=== PATIENT | female | born 1930 | race Caucasian/White ===

== ENCOUNTER 2017-01-19 15:23 | Emergency (ER) | payer MEDICARE, OTHER ==
[2017-01-19 15:40] VITALS: BP 125/66
[2017-01-19] MEDS ORDERED: LORazepam 1 MG Tab PO ONE (16:03)
--- NOTE | 2017-01-19 16:05 | EDM.PDOC ---
ED HPI GENERAL MEDICAL PROBLEM - General Chief Complaint: General Stated Complaint: ILLNESS Time Seen by Provider: 01/19/17 15:52 Source of Information: Reports: Patient, Family, RN notes reviewed History Limitations: Reports: No limitations - History of Present Illness INITIAL COMMENTS - FREE TEXT/NARRATIVE: 86-year-old female presents emergency department today complaining of dizziness and shortness of breath she has known history of end-stage renal disease states she's been dizzy on and off for the last week or so as well as shortness of breath for the last week or so on and off today things seem to get worse she does admit to being anxious she had dialysis today felt lightheaded both before and after her dialysis run she denies any fevers - Related Data Allergies Allergy/AdvReac Type Severity Reaction Status Date / Time No Known Allergies Allergy Verified 01/19/17 15:40 Home Meds: Home Meds Aspirin [Malinda Chewable Aspirin] 81 mg PO DAILY 08/16/14 [History] Latanoprost [Xalatan 0.005% Ophth Soln] 1 drop EYERT BEDTIME 08/16/14 [History] Multivitamin with Minerals [Multiple Vitamin] 1 tab PO DAILY 08/16/14 [History] Furosemide [Lasix] 80 mg PO BID 03/03/16 [History] Nystatin [Nystatin Crm] 1 applic TOP BID 03/03/16 [History] Vitamin B Complex [B Complex] 1 tab PO DAILY 03/04/16 [History] Lisinopril [Lisinopril] 1 tab PO BID 01/19/17 [History] Past Medical History HEENT History: Reports: Glaucoma, Impaired vision Cardiovascular History: Reports: Heart Failure, Hypertension Respiratory History: Reports: SOB Genitourinary History: Reports: 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: , Other (see below) Other OB/BYN History: cyst removed from right ovary around 31 years of age Musculoskeletal History: Reports: Arthritis Other Neuro History: none Endocrine/Metabolic History: Reports: Diabetes, type II, Obesity/BMI 30+ Hematologic History: Reports: Blood transfusion(s) - Infectious Disease History Infectious Disease History: Reports: Chicken pox, Measles, Mumps, Shingles - Past Surgical History HEENT Surgical History: Reports: None Cardiovascular Surgical History: Reports: None Respiratory Surgical History: Reports: None GI Surgical History: Reports: Appendectomy Female Surgical History: Reports: None Other Female Surgeries/Procedures: none Musculoskeletal Surgical History: Reports: Other (see below) Other Musculoskeletal Surgeries/Procedures:: R femur fx with hardware. hardware removed. Social & Family History - Family History Family Medical History: Noncontributory - Tobacco Use Smoking Status *Q: Former Smoker Years of Tobacco use: 45 Used Tobacco, but Quit: Yes Month Tobacco Last Used: April Second Hand Smoke Exposure: No - Alcohol Use Days Per Week of Alcohol Use: 0 - Recreational Drug Use Recreational Drug Use: No ED ROS GENERAL - Review of Systems Review Of Systems: See Below Constitutional: Denies: fever, chills HEENT: Reports: No symptoms Respiratory: Reports: shortness of breath Cardiovascular: Reports: Dyspnea on exertion, Lightheadedness. Denies: Chest pain GI/Abdominal: Reports: No symptoms : Reports: no symptoms Musculoskeletal: Reports: no symptoms ED EXAM, GENERAL - Physical Exam Exam: See Below Free Text/Narrative:: General: Elderly female, not in any distress, alert and oriented x3 HEENT: head is atraumatic normocephalic, eyes pupils equal round reactive to light and accommodation sclera clear no conjunctivitis appreciated. Ears blocked by cerumen bilaterally. Nose no septal deviation, nares are clear, no blood present. Mouth mucosa is moist and pink no erythema or exudate noted in soft palate, tongue is midline uvula is midline, dentures in place. Neck: Supple no thyromegaly no tracheal deviation. Nodes: Cervical nodes subclavicular nodes nontender no palpable lymphadenopathy noted. Lungs: clear to auscultation bilaterally with symmetrical respirations, no adventitious noise appreciated. CV: Regular rate and rhythm S1 and S2 appreciated no murmurs rubs or gallops noted. Abdomen: Soft, nontender, no palpable masses or organomegaly appreciated, no distention no guarding bowel sounds are present, . Neuro: Cranial nerves II through XII grossly intact Skin: Warm and dry, intact Extremities: No lower extremity edema appreciated, Course - Vital Signs Last Recorded V/S: Last Vital Signs Temp 98.6 F 01/19/17 15:38 Pulse 76 01/19/17 15:38 Resp 18 01/19/17 15:38 BP 125/66 01/19/17 15:38 Pulse Ox 97 01/19/17 15:38 - Orders/Labs/Meds Orders: Active Orders 24 hr Category Date Time Status EKG Documentation Completion [RC] ASDIRECTED Care 01/19/17 16:03 Active Chest 1V Frontal [CR] Urgent Exams 01/19/17 16:02 Taken EKG 12 Lead [EK] Stat Ther 01/19/17 16:01 Ordered Labs: Laboratory Tests 01/19/17 01/19/17 Range/Units 16:21 16:21 WBC 7.7 (4.5-11.0) K/uL RBC 3.58 (3.30-5.50) M/uL Hgb 11.7 L (12.0-15.0) g/dL Hct 34.1 L (36.0-48.0) % MCV 95 (80-98) fL MCH 33 H (27-31) pg MCHC 34 (32-36) % Plt Count 292 (150-400) K/uL Neut % (Auto) 64 (36-66) % Lymph % (Auto) 22 L (24-44) % [place] % (Auto) 10 H (2-6) % Eos % (Auto) 3 (2-4) % Baso % (Auto) 0 (0-1) % Sodium 135 L (140-148) mmol/L Potassium 3.1 L (3.6-5.2) mmol/L Chloride 95 L (100-108) mmol/L Carbon Dioxide 29 (21-32) mmol/L Anion Gap 14.1 H (5.0-14.0) mmol/L BUN 22 H (7-18) mg/dL Creatinine 3.7 H* (0.6-1.0) mg/dL Est Cr Clr Drug Dosing 10.81 mL/min Estimated GFR (MDRD) 12 L (>60) Glucose 198 H (74-106) mg/dL Calcium 8.8 (8.5-10.1) mg/dL Meds: Medications Discontinued Medications Generic Name Dose Route Start Last Admin Trade Name Freq PRN Reason Stop Dose Admin Lorazepam 1 mg 01/19/17 16:03 01/19/17 16:12 Ativan PO 01/19/17 16:04 1 mg ONETIME ONE Administration Departure - Departure Time of Disposition: 17:05 Disposition: Home, Self-Care 01 Condition: fair Clinical Impression: Dizzy Forms: ED Department Discharge Additional Instructions: Please followup with your primary care provider in 3-5 days if not better, please call return to the emergency department with worsening of symptoms. - My Orders Last 24 Hours: My Active Orders 01/19/17 16:01 EKG 12 Lead [EK] Stat 01/19/17 16:02 Chest 1V Frontal [CR] Urgent 01/19/17 16:03 EKG Documentation Completion [RC] ASDIRECTED - Assessment/Plan Last 24 Hours: My Active Orders 01/19/17 16:01 EKG 12 Lead [EK] Stat 01/19/17 16:02 Chest 1V Frontal [CR] Urgent 01/19/17 16:03 EKG Documentation Completion [RC] ASDIRECTED Plan: Assessment Acuity = acute Site and laterality = dizziness, in a patient with known end-stage kidney disease on dialysis Etiology = unclear etiology Manifestations = none Location of injury = home Lab values = in the lower lumbar and 7 this is a normochromic anemia sodium low at 135 consistent hyponatremia potassium of 3.1 consistent with hypokalemia creatinine elevated at 3.7 consistent end stage kidney disease G5D Plan She was able to ambulate around the emergency department without difficulty she still states the dizziness is intermittent, she would like to go home followup with her primary care provider, no shortness of breath Patient was in agreement with the plan all questions were answered, they were instructed to return to the emergency department or call for worsening symptoms. This note was dictated using [employer] voice recognition software please call with any questions.
--- NOTE | 2017-01-20 09:06 | CR ---
Portable chest Comparison: September 2015. There has been removal of a right central venous catheter. The heart and vascular structures are sta ble. There is density in the medial aspect of the right upper lobe. There may be volume loss or infi ltrate of the medial right upper lobe. Impression: 1. Right upper lobe atelectasis and/or infiltrate.
== END 2017-01-19 17:14 | disposition home or self-care (01) ==
LOC: JP.ED 15:23
DX: R42 Dizziness and giddiness (principal); I11.0 Hypertensive heart disease with heart failure; I50.9 Heart failure, unspecified; E11.9 Type 2 diabetes mellitus without complications; Z87.891 Personal history of nicotine dependence; Z79.82 Long term (current) use of aspirin; Z79.899 Other long term (current) drug therapy
CPT/HCPCS: 36415; 71010; 80048; 85025; 93005; 99284; A9270; 93010

== ENCOUNTER 2017-03-09 20:15 | Emergency (ER) | payer MEDICARE, OTHER ==
[2017-03-09] MEDS ORDERED: fentaNYL 100 MCG/2 ML SDV IVPUSH ONE ×2 (20:32→21:00)
[2017-03-09] MEDS ORDERED: HYDROmorphone 1 MG/ML Syringe IVPUSH ONE ×2 (21:11→22:13)
--- NOTE | 2017-03-09 21:17 | EDM.PDOC ---
ED HPI Trauma - General Chief Complaint: Lower Extremity Injury/Pain Stated Complaint: FELL HURT HIP Time Seen by Provider: 03/09/17 21:10 Source: Reports: Patient, EMS, RN notes reviewed History Limitations: Reports: No limitations - History of Present Illness INITIAL COMMENTS - FREE TEXT/NARRATIVE: 87-year-old female presents emergency department today via EMS services, she had fallen earlier today in the bathroom EMS had difficulty asked dictating her from the bathroom she is complaining of left hip pain unable to bear weight Allergies/ADRs: Allergies No Known Allergies Allergy (Verified 01/19/17 15:40) Home Medications: Ambulatory Orders Aspirin [Malinda Chewable Aspirin] 81 mg PO DAILY 08/16/14 [Confirmed 03/09/17] Latanoprost [Xalatan 0.005% Ophth Soln] 1 drop EYERT BEDTIME 08/16/14 [ Confirmed 03/09/17] Multivitamin with Minerals [Multiple Vitamin] 1 tab PO DAILY 08/16/14 [ Confirmed 03/09/17] Furosemide [Lasix] 40 mg PO BID 03/03/16 [Confirmed 03/09/17] Nystatin [Nystatin Crm] 1 applic TOP BID 03/03/16 [Confirmed 03/09/17] Vitamin B Complex [B Complex] 1 tab PO DAILY 03/04/16 [Confirmed 03/09/17] Lisinopril [Lisinopril] 1 tab PO BID 01/19/17 [Confirmed 03/09/17] Metoprolol Tartrate 25 mg PO BID 03/09/17 [Confirmed 03/09/17] Sevelamer Carbonate [Renvela] 800 mg PO TID 03/09/17 [Confirmed 03/09/17] amLODIPine Besylate [Norvasc] 2.5 mg PO DAILY 03/09/17 [Confirmed 03/09/17] Past Medical History HEENT History: Reports: Glaucoma, Impaired vision Cardiovascular History: Reports: Heart Failure, Hypertension Respiratory History: Reports: SOB Genitourinary History: Reports: Dialysis 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,W,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: , Other (see below) Other OB/BYN History: cyst removed from right ovary around 31 years of age Musculoskeletal History: Reports: Arthritis, Fracture Endocrine/Metabolic History: Reports: Diabetes, type II, Obesity/BMI 30+ Hematologic History: Reports: Blood transfusion(s) - Infectious Disease History Infectious Disease History: Reports: Chicken pox, Measles, Mumps, Shingles - Past Surgical History HEENT Surgical History: Reports: None Cardiovascular Surgical History: Reports: None Respiratory Surgical History: Reports: None GI Surgical History: Reports: Appendectomy Female Surgical History: Reports: None Other Female Surgeries/Procedures: none Musculoskeletal Surgical History: Reports: Other (see below) Other Musculoskeletal Surgeries/Procedures:: R femur fx with hardware. hardware removed. Social & Family History - Family History Family Medical History: Noncontributory - Tobacco Use Smoking Status *Q: Never Smoker Years of Tobacco use: 45 Used Tobacco, but Quit: Yes Month Tobacco Last Used: April Second Hand Smoke Exposure: No - Caffeine Use Caffeine Use: Reports: None - Alcohol Use Days Per Week of Alcohol Use: 0 - Recreational Drug Use Recreational Drug Use: No Review of Systems - Review of Systems Review Of Systems: See Below Respiratory: Reports: No Symptoms Cardiovascular: Reports: no symptoms GI/Abdominal: Reports: No symptoms Musculoskeletal: Reports: joint pain (Left hip pain) Trauma Exam - Physical Exam Exam: See Below Text/Narrative:: Examination of the left hip is outwardly rotated there is tenderness to palpation of the greater trochanter she will not tolerate any movement of that hip Exam Limited By: No limitations General Appearance: Reports: alert, mild distress Neck: Reports: non-tender, full range of motion, normal alignment, normal inspection Respiratory Exam: Reports: no respiratory distress, lungs clear, normal breath sounds, no accessory muscle use Cardiovascular: Reports: regular rate, rhythm, no murmur GI/Abdominal: Reports: soft, non tender Course - Vital Signs Last Recorded V/S: Last Vital Signs Temp 97.9 F 03/09/17 20:30 Pulse 48 L 03/09/17 23:20 Resp 12 03/09/17 23:20 BP 160/49 H 03/09/17 23:20 Pulse Ox 91 L 03/09/17 23:20 - Orders/Labs/Meds Orders: Active Orders 24 hr Category Date Time Status Hip Min 2V or 3V Lt [CR] Stat Exams 03/09/17 20:26 Taken Hip wo Cont Lt [CT] Stat Exams 03/09/17 21:11 Taken Labs: Laboratory Tests 03/09/17 03/09/17 Range/Units 23:29 23:29 WBC 11.9 H (4.5-11.0) K/uL RBC 3.47 (3.30-5.50) M/uL Hgb 11.6 L (12.0-15.0) g/dL Hct 35.6 L (36.0-48.0) % MCV 103 H (80-98) fL MCH 33 H (27-31) pg MCHC 33 (32-36) % Plt Count 289 (150-400) K/uL Neut % (Auto) 72 H (36-66) % Lymph % (Auto) 16 L (24-44) % [place] % (Auto) 9 H (2-6) % Eos % (Auto) 2 (2-4) % Baso % (Auto) 0 (0-1) % Sodium 138 L (140-148) mmol/L Potassium 3.5 L (3.6-5.2) mmol/L Chloride 100 (100-108) mmol/L Carbon Dioxide 30 (21-32) mmol/L Anion Gap 11.5 (5.0-14.0) mmol/L BUN 27 H (7-18) mg/dL Creatinine 4.8 H* (0.6-1.0) mg/dL Est Cr Clr Drug Dosing TNP Estimated GFR (MDRD) 9 L (>60) Glucose 130 H (74-106) mg/dL Calcium 7.9 L (8.5-10.1) mg/dL Total Bilirubin 0.3 (0.2-1.0) mg/dL AST 27 (15-37) U/L ALT 26 (12-78) U/L Alkaline Phosphatase 89 (46-116) U/L Total Protein 6.8 (6.4-8.2) g/dL Albumin 3.5 (3.4-5.0) g/dL Globulin 3.3 (2.3-3.5) g/dL Albumin/Globulin Ratio 1.1 L (1.2-2.2) Meds: Medications Discontinued Medications Generic Name Dose Route Start Last Admin Trade Name Freq PRN Reason Stop Dose Admin Fentanyl 50 mcg 03/09/17 20:32 03/09/17 20:35 Sublimaze IVPUSH 03/09/17 20:33 50 mcg ONETIME ONE Administration Fentanyl 50 mcg 03/09/17 21:00 03/09/17 21:04 Sublimaze IVPUSH 03/09/17 21:01 50 mcg ONETIME ONE Administration Hydromorphone HCl 1 mg 03/09/17 21:11 03/09/17 21:25 Dilaudid IVPUSH 03/09/17 21:12 1 mg ONETIME ONE Administration Hydromorphone HCl 1 mg 03/09/17 22:13 03/09/17 22:30 Dilaudid IVPUSH 03/09/17 22:14 1 mg ONETIME ONE Administration Departure - Departure Time of Disposition: 00:41 Disposition: DC/Tfer to Acute Hospital 02 Condition: good Clinical Impression: Intertrochanteric fracture, hip Forms: ED Department Discharge - My Orders Last 24 Hours: My Active Orders 03/09/17 20:26 Hip Min 2V or 3V Lt [CR] Stat 03/09/17 21:11 Hip wo Cont Lt [CT] Stat - Assessment/Plan Last 24 Hours: My Active Orders 03/09/17 20:26 Hip Min 2V or 3V Lt [CR] Stat 03/09/17 21:11 Hip wo Cont Lt [CT] Stat Plan: Assessment Acuity = acute Site and laterality = comminuted and displaced intertrochanteric fracture left proximal femur Etiology = secondary to fall Manifestations = pain Location of injury = home Lab values = WBC elevated lead 0.9 muscle leukocytosis hemoglobin low 11.6 consistent normochromic anemia sodium low at 138 consistent hyponatremia potassium low at 2.5 consistent hypokalemia creatinine elevated at 4.8 consistent with chronic renal failure stage G5 D CT scan demonstrates the fracture described above Plan Patient was kindly accepted by Dr. Anthony Anthony she will be transported via EMS services ground Patient was in agreement with the plan all questions were answered, they were instructed to return to the emergency department or call for worsening symptoms. This note was dictated using [employer] voice recognition software please call with any questions.
[2017-03-09 23:21] VITALS: BP 160/49
[2017-03-10] MEDS ORDERED: Ondansetron 4 MG/2 ML SDV IVPUSH ONE (00:42)
--- NOTE | 2017-03-10 09:44 | CR ---
Left hip There is a nondisplaced fracture at the base of the femoral neck. The visualized left pelvis demonst rates no additional fracture. Impression: 1. Fracture left femoral neck.
== END 2017-03-10 01:15 ==
LOC: JP.ED 20:15
DX: S72.145A Nondisplaced intertrochanteric fracture of left femur, initial encounter for closed fracture (principal); W18.30XA Fall on same level, unspecified, initial encounter; Y92.002 Bathroom of unspecified non-institutional (private) residence as the place of occurrence of the external cause; M16.12 Unilateral primary osteoarthritis, left hip; I13.0 Hypertensive heart and chronic kidney disease with heart failure and stage 1 through stage 4 chronic kidney disease, or unspecified chronic kidney disease; E11.22 Type 2 diabetes mellitus with diabetic chronic kidney disease; N18.9 Chronic kidney disease, unspecified; I50.9 Heart failure, unspecified; Z99.2 Dependence on renal dialysis; E66.9 Obesity, unspecified; Z79.82 Long term (current) use of aspirin; Z79.899 Other long term (current) drug therapy; Z87.891 Personal history of nicotine dependence
CPT/HCPCS: 36415; 73502; 73700; 80053; 85025; 96374; 96375; 96376; 99285; J1170; J2405; J3010; 99283

== ENCOUNTER 2017-05-27 22:03 | Emergency (ER) | payer MEDICARE, OTHER ==
[2017-05-27] MEDS ORDERED: Morphine 4 MG/ML Syringe ONE (22:41)
[2017-05-27] MEDS ORDERED: Morphine 4 MG/ML Syringe IVPUSH ONE ×2 (22:45→22:57)
[2017-05-27 23:03] VITALS: BP 61/25
--- NOTE | 2017-05-28 00:31 | EDM.PDOC ---
ED HPI GENERAL MEDICAL PROBLEM - General Chief Complaint: Cardiovascular Problem Stated Complaint: MEDICAL VIA [facility] Time Seen by Provider: 05/27/17 22:05 Source of Information: Reports: Patient History Limitations: Reports: No Limitations - History of Present Illness INITIAL COMMENTS - FREE TEXT/NARRATIVE: History of present illness: [This 87-year-old female presented to the ER by ambulance with a history of having undergone a fistula formation in her right upper arm for dialysis today in [place]. Her arm is swollen up and become very painful and she was sent over from the residential where she resides. While she was here she also began complaining of back pain. Otherwise she had no other complaints. She was able to feel her fingers and move her fingers of her right hand.] Review of systems: As per history of present illness and below otherwise all systems reviewed and negative. Past medical history: As per history of present illness and as reviewed below otherwise noncontributory. Surgical history: As per history of present illness and as reviewed below otherwise noncontributory. Social history: No reported history of drug or alcohol abuse. Family history: As per history of present illness and as reviewed below otherwise noncontributory. Physical exam: HEENT: Atraumatic, normocephalic, pupils reactive, negative for conjunctival pallor or scleral icterus, mucous membranes moist, throat clear, neck supple, nontender, trachea midline. Lungs: Clear to auscultation, breath sounds equal bilaterally, chest nontender. Heart: S1S2, regular, negative for clicks, rubs, or JVD. Abdomen: Soft, nondistended, nontender. Negative for masses or hepatosplenomegaly. Negative for costovertebral tenderness. Pelvis: Stable nontender. Genitourinary: Deferred. Rectal: Deferred. Extremities: Examination of the right upper arm revealed swelling and darkening of the skin of the medial surface of the upper arm and 2 surgical incisions that were closed with zohreh through which some bright red blood was weeping. The arm was tense and painful to palpation. Distally her capillary refill was less than 3 seconds and she did have radial pulses and sensation and movement of her hand. Neuro: Awake, alert, oriented. Cranial nerves II through XII unremarkable. Cerebellum unremarkable. Motor and sensory unremarkable throughout. Exam nonfocal. Diagnostics: [] Therapeutics: [We took a picture of the arm and sent to the surgeon that performed the AV fistula earlier today and then I spoke with him Dr. Sousa who requested that we return her to [place] so said he could take her back to the operating room and stop any bleeding that was occurring. Just about when we were ready to transfer her her blood pressure did drop into the mid 50s and then hovered between the mid 50s and mid 70s for the remaining time of her stay in the ER. We did start normal saline on her and provide her with 1 bag of O- blood. We did contact [place] and let them know that she was becoming hypotensive and was complaining of back pain and that I had a concern that perhaps she may also have an aortic aneurysm rupture occurring. She was given 2 doses of morphine 4 mg each aliquot to control the pain that she was having an anxiety.] Impression: [Postoperative bleeding from an AV fistula that had been created earlier today] Plan: [Patient was transferred to [place] ER by ALS] Definitive disposition and diagnosis as appropriate pending reevaluation and review of above. Middle Back Pain Score (Numeric/FACES): 10 - Related Data Allergies Allergy/AdvReac Type Severity Reaction Status Date / Time No Known Allergies Allergy Verified 05/27/17 22:37 Home Meds: Home Meds Aspirin [Malinda Chewable Aspirin] 81 mg PO DAILY 08/16/14 [History] Latanoprost [Xalatan 0.005% Ophth Soln] 1 drop EYERT BEDTIME 08/16/14 [History] Multivitamin with Minerals [Multiple Vitamin] 1 tab PO DAILY 08/16/14 [History] Furosemide [Lasix] 40 mg PO BID 03/03/16 [History] Nystatin [Nystatin Crm] 1 applic TOP BID 03/03/16 [History] Vitamin B Complex [B Complex] 1 tab PO DAILY 03/04/16 [History] Lisinopril [Lisinopril] 1 tab PO BID 01/19/17 [History] Metoprolol Tartrate 25 mg PO BID 03/09/17 [History] Sevelamer Carbonate [Renvela] 800 mg PO TID 03/09/17 [History] amLODIPine Besylate [Norvasc] 2.5 mg PO DAILY 03/09/17 [History] Past Medical History HEENT History: Reports: Glaucoma, Impaired Vision Cardiovascular History: Reports: Heart Failure, Hypertension Respiratory History: Reports: SOB Genitourinary History: Reports: Dialysis 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,W,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: , Other (See Below) Other OB/BYN History: cyst removed from right ovary around 31 years of age Musculoskeletal History: Reports: Arthritis, Fracture Other Neuro History: none Endocrine/Metabolic History: Reports: Diabetes, Type II, Obesity/BMI 30+ Hematologic History: Reports: Blood Transfusion(s) - Infectious Disease History Infectious Disease History: Reports: Chicken Pox, Measles, Mumps, Shingles - Past Surgical History Musculoskeletal Surgical History: Reports: Other (See Below) Social & Family History - Family History Family Medical History: Noncontributory - Tobacco Use Smoking Status *Q: Unknown Ever Smoked Years of Tobacco use: 45 Used Tobacco, but Quit: Yes Month Tobacco Last Used: April Second Hand Smoke Exposure: No - Caffeine Use Caffeine Use: Reports: None - Alcohol Use Days Per Week of Alcohol Use: 0 - Recreational Drug Use Recreational Drug Use: No ED ROS GENERAL - Review of Systems Review Of Systems: ROS reveals no pertinent complaints other than HPI. ED EXAM, GENERAL - Physical Exam Exam: See Below Course - Vital Signs Last Recorded V/S: Last Vital Signs Temp 36.4 C 05/27/17 22:25 Pulse 81 05/27/17 22:48 Resp 24 H 05/27/17 22:48 BP 61/25 L 05/27/17 22:48 Pulse Ox 96 05/27/17 22:48 - Orders/Labs/Meds Orders: Active Orders 24 hr Category Date Time Status RED BLOOD CELLS LP [BBK] Stat Lab 05/27/17 22:46 Ordered TYPE AND SCREEN [BBK] Stat Lab 05/27/17 22:46 Ordered Meds: Medications Discontinued Medications Generic Name Dose Route Start Last Admin Trade Name Freq PRN Reason Stop Dose Admin Morphine Sulfate Confirm 05/27/17 22:41 05/27/17 23:09 Morphine Administered 05/27/17 22:42 Not Given Dose 4 mg .ROUTE .STK-MED ONE Morphine Sulfate 4 mg 05/27/17 22:45 05/27/17 22:42 Morphine IVPUSH 05/27/17 22:46 4 mg ONETIME ONE Administration Morphine Sulfate 4 mg 05/27/17 22:57 05/27/17 23:13 Morphine IVPUSH 05/27/17 22:58 4 mg ONETIME ONE Administration Departure - Departure Time of Disposition: 20:00 Disposition: DC/Tfer to Acute Hospital 02 Reason for Transfer *Q: Other (Needing surgical intervention) Clinical Impression: Postoperative hemorrhage Qualifiers: Surgical complication system/body Area: subcutaneous tissue Procedure type: non -dermatologic Qualified Code(s): L76.22 - Postprocedural hemorrhage of skin and subcutaneous tissue following other procedure Referrals: PCP,None [Primary Care Provider] - Forms: ED Department Discharge - My Orders Last 24 Hours: My Active Orders 05/27/17 22:46 RED BLOOD CELLS LP [BBK] Stat TYPE AND SCREEN [BBK] Stat - Assessment/Plan Last 24 Hours: My Active Orders 05/27/17 22:46 RED BLOOD CELLS LP [BBK] Stat TYPE AND SCREEN [BBK] Stat
== END 2017-05-27 22:55 ==
LOC: JP.ED 22:03
DX: L76.22 Postprocedural hemorrhage of skin and subcutaneous tissue following other procedure (principal); I11.0 Hypertensive heart disease with heart failure; I50.9 Heart failure, unspecified; E11.9 Type 2 diabetes mellitus without complications; E66.9 Obesity, unspecified; M19.90 Unspecified osteoarthritis, unspecified site; Z79.82 Long term (current) use of aspirin; Z79.899 Other long term (current) drug therapy; Z99.2 Dependence on renal dialysis
CPT/HCPCS: 36430; 96374; 96376; 99285; J2270; P9016; 36415; 86900; 86901; 86920; 86922

== ENCOUNTER 2017-05-30 14:30 | Emergency (ER) | payer MEDICARE, OTHER ==
--- NOTE | 2017-05-30 15:23 | EDM.PDOC ---
ED HPI GENERAL MEDICAL PROBLEM - General Chief Complaint: Wound Recheck Stated Complaint: MEDICAL [facility]IA [facility] Time Seen by Provider: 05/30/17 14:42 Source of Information: Reports: Patient, Family History Limitations: Reports: Other (This patient can't tell me much about her history and the daughter doesn't really know when her surgery was done) - History of Present Illness INITIAL COMMENTS - FREE TEXT/NARRATIVE: This lady was discharged yesterday evening from the hospital in [place]. She had a clot to her fistula and it sounds like maybe a thrombectomy was done and then a right subclavian catheter was placed for dialysis. Today at the custodial the nurse thought that the wounds to her upper arm was bleeding and soaking through the bandages and there is also concerned about her right arm swelling area - Related Data Allergies Allergy/AdvReac Type Severity Reaction Status Date / Time No Known Allergies Allergy Verified 05/27/17 22:37 Home Meds: Home Meds Aspirin [Malinda Chewable Aspirin] 81 mg PO DAILY 08/16/14 [History] Latanoprost [Xalatan 0.005% Ophth Soln] 1 drop EYERT BEDTIME 08/16/14 [History] Multivitamin with Minerals [Multiple Vitamin] 1 tab PO DAILY 08/16/14 [History] Furosemide [Lasix] 40 mg PO BID 03/03/16 [History] Nystatin [Nystatin Crm] 1 applic TOP BID 03/03/16 [History] Vitamin B Complex [B Complex] 1 tab PO DAILY 03/04/16 [History] Lisinopril [Lisinopril] 1 tab PO BID 01/19/17 [History] Metoprolol Tartrate 25 mg PO BID 03/09/17 [History] Sevelamer Carbonate [Renvela] 800 mg PO TID 03/09/17 [History] amLODIPine Besylate [Norvasc] 2.5 mg PO DAILY 03/09/17 [History] Past Medical History HEENT History: Reports: Glaucoma, Impaired Vision Cardiovascular History: Reports: Heart Failure, Hypertension Respiratory History: Reports: SOB Genitourinary History: Reports: Dialysis 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,W,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 [employer] History: Reports: , Other (See Below) Other OB/BYN History: cyst removed from right ovary around 31 years of age Musculoskeletal History: Reports: Arthritis, Fracture Other Neuro History: none Endocrine/Metabolic History: Reports: Diabetes, Type II, Obesity/BMI 30+ Hematologic History: Reports: Blood Transfusion(s) - Infectious Disease History Infectious Disease History: Reports: Chicken Pox, Measles, Mumps, Shingles - Past Surgical History Musculoskeletal Surgical History: Reports: Other (See Below) Social & Family History - Family History Family Medical History: Noncontributory - Tobacco Use Smoking Status *Q: Unknown Ever Smoked Years of Tobacco use: 45 Used Tobacco, but Quit: Yes Month Tobacco Last Used: April Hand Smoke Exposure: No - Caffeine Use Caffeine Use: Reports: None - Alcohol Use Days Per Week of Alcohol Use: 0 - Recreational Drug Use Recreational Drug Use: No ED ROS GENERAL - Review of Systems Review Of Systems: ROS reveals no pertinent complaints other than HPI. ED EXAM, GENERAL - Physical Exam Exam: See Below Exam Limited By: No Limitations General Appearance: Alert, No Apparent Distress (This lady appears to be comfortable lying in bed.), Obese Extremities: Other (There is a large loose gauze dressing to the upper arm and a smaller 1 to the forearm. There is just a little bit of oozing that had soaked through this dressing. The dressing was removed. There is a large purple area over the biceps. It has 2 black semicircular sol on it which appear to have been drawn by the surgeon and the area of purple discoloration is just slightly larger than the larger of those to sol. There is a little bit of surrounding erythema but really is not increased warmth. There is moderate swelling of the right arm all the way down to the hand but neurovascular tendon all intact to the hand radial pulse is palpable. Overall these changes or what I would expect one or 2 days post op. It does not appear to be cellulitis. It does not appear to have any ongoing hemorrhage.) Course - Vital Signs Last Recorded V/S: Last Vital Signs Temp 37.0 C 05/30/17 14:35 Pulse 83 05/30/17 14:35 Resp 17 05/30/17 14:35 BP 132/61 05/30/17 14:35 Pulse Ox 95 05/30/17 14:35 Departure - Departure Time of Disposition: 15:22 Disposition: DC/Tfer to [facility] 03 Condition: Fair Clinical Impression: Encounter for wound re-check - Discharge Information Additional Instructions: The wound appears to be as expected after her recent surgery. For any concerns she should be sent back to the emergency department tomorrow during the daytime hours and I will recheck the wound.
[2017-05-30 17:47] VITALS: BP 136/99
== END 2017-05-30 17:57 ==
LOC: JP.ED 14:30
DX: Z48.89 Encounter for other specified surgical aftercare (principal); H54.7 Unspecified visual loss; I11.0 Hypertensive heart disease with heart failure; I50.9 Heart failure, unspecified; M19.90 Unspecified osteoarthritis, unspecified site; E11.9 Type 2 diabetes mellitus without complications; E66.9 Obesity, unspecified; Z79.82 Long term (current) use of aspirin; Z79.899 Other long term (current) drug therapy
CPT/HCPCS: 99282; 99283

== ENCOUNTER 2017-06-03 09:10 | Inpatient (IN) | payer MEDICARE, OTHER ==
[2017-06-03] MEDS ORDERED: HYDROmorphone 0.5 MG/0.5 ML Syringe IVPUSH ONE (09:30)
[2017-06-03] MEDS ORDERED: Ondansetron 4 MG/2 ML SDV IVPUSH ONE (09:30)
--- NOTE | 2017-06-03 09:44 | EDM.PDOC ---
ED HPI GENERAL MEDICAL PROBLEM - General Chief Complaint: Abdominal Pain Stated Complaint: MEDICAL [facility]IA [facility] Time Seen by Provider: 06/03/17 09:30 Source of Information: Reports: Patient, EMS, Senior Care Records, Other ( power of tyre fitter ) History Limitations: Reports: Altered Mental Status - History of Present Illness INITIAL COMMENTS - FREE TEXT/NARRATIVE: 87-year-old female who has had 3 visits by ambulance in the last week for various reasons is a dialysis patient, this morning she became hypotensive and unresponsive and bleeding from the rectal and vaginal areas. She's been complaining of abdominal pain for the past several days. No fevers or chills. She looks very pale, initial blood pressure per EMS had a systolic of 70. She is now 92/56. She is answering questions and is awake. Onset: Unknown/Unsure Severity: Severe Associated Symptoms: Reports: Nausea/Vomiting, Weakness. Denies: Fever/Chills, Headaches, Shortness of Breath Abdominal Pain Score (Numeric/FACES): 8 - Related Data Allergies Allergy/AdvReac Type Severity Reaction Status Date / Time No Known Allergies Allergy Verified 06/03/17 11:19 Home Meds: Home Meds Aspirin [Malinda Chewable Aspirin] 81 mg PO DAILY 08/16/14 [History] Latanoprost [Xalatan 0.005% Ophth Soln] 1 drop EYERT BEDTIME 08/16/14 [History] Multivitamin with Minerals [Multiple Vitamin] 1 tab PO DAILY 08/16/14 [History] Furosemide [Lasix] 40 mg PO BID 03/03/16 [History] Nystatin [Nystatin Crm] 1 applic TOP BID 03/03/16 [History] Vitamin B Complex [B Complex] 1 tab PO DAILY 03/04/16 [History] Lisinopril [Lisinopril] 1 tab PO BID 01/19/17 [History] Metoprolol Tartrate 25 mg PO BID 03/09/17 [History] Sevelamer Carbonate [Renvela] 800 mg PO TID 03/09/17 [History] amLODIPine Besylate [Norvasc] 2.5 mg PO DAILY 03/09/17 [History] Past Medical History HEENT History: Reports: Glaucoma, Impaired Vision Cardiovascular History: Reports: Heart Failure, Hypertension Respiratory History: Reports: SOB Genitourinary History: Reports: Dialysis 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,W,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: , Other (See Below) Other OB/BYN History: cyst removed from right ovary around 31 years of age Musculoskeletal History: Reports: Arthritis, Fracture Other Neuro History: none Endocrine/Metabolic History: Reports: Diabetes, Type II, Obesity/BMI 30+ Hematologic History: Reports: Blood Transfusion(s) - Infectious Disease History Infectious Disease History: Reports: Chicken Pox, Measles, Mumps, Shingles - Past Surgical History GI Surgical History: Reports: Appendectomy Musculoskeletal Surgical History: Reports: Other (See Below) Social & Family History - Family History Family Medical History: Noncontributory - Tobacco Use Smoking Status *Q: Never Smoker Years of Tobacco use: 45 Used Tobacco, but Quit: Yes Month Tobacco Last Used: April Second Hand Smoke Exposure: No - Caffeine Use Caffeine Use: Reports: None - Alcohol Use Days Per Week of Alcohol Use: 0 - Recreational Drug Use Recreational Drug Use: No ED ROS GENERAL - Review of Systems Review Of Systems: See Below Constitutional: Reports: Malaise, Weakness, Decreased Appetite Respiratory: Denies: Shortness of Breath GI/Abdominal: Reports: Abdominal Pain, Hematochezia Skin: Reports: Bruising Neurological: Reports: Confusion Psychiatric: Reports: Depression ED EXAM, GENERAL - Physical Exam Exam: See Below Exam Limited By: Altered Mental Status General Appearance: Alert (Patient is alert but answers questions slowly) Eye Exam: Bilateral Eye: EOMI (Very pale conjunctiva) Neck: Supple Respiratory/Chest: No Respiratory Distress, Lungs Clear Cardiovascular: Regular Rate, Rhythm GI/Abdominal: Abnormal Bowel Sounds (over a course of 2 minutes there were no bowel sounds heard), Other (Even the lightest palpation to the entire abdomen causes her to wince in pain) Extremities: Other (Numerous superficial bruises are present, skin is very pale) Neurological: Confused, Disoriented Psychiatric: Depressed Mood Skin Exam: Dry, Pallor Course - Vital Signs Last Recorded V/S: Last Vital Signs Temp 97.1 F 06/03/17 13:15 Pulse 99 06/03/17 13:15 Resp 16 06/03/17 13:15 BP 107/54 L 06/03/17 13:15 Pulse Ox 90 L 06/03/17 13:15 - Orders/Labs/Meds Orders: Active Orders 24 hr Category Date Time Status LORazepam [Ativan ORAL Concentrate 1MG/0.5 ML U/D] Med 06/03/17 10:38 Active 0.5 - 1 mg PO Q1H PRN Morphine [Morphine 10 MG/0.5 ML Oral Syringe] Med 06/03/17 10:38 Active 5 - 10 mg PO Q1H PRN Medication Orders Atropine Sulfate (Atropine 1%) 0 ml SL Q4H PRN PRN Reason: secretions Lorazepam (Ativan Oral Concentrate 1mg/0.5 Ml U/D) 0.5 - 1 mg PO Q1H PRN PRN Reason: Anxiety Last Admin: 06/03/17 15:17 Dose: 1 mg Admin: 06/03/17 13:10 Dose: 1 mg Admin: 06/03/17 12:13 Dose: 1 mg Morphine Sulfate (Morphine 10 Mg/0.5 Ml Oral Syringe) 5 - 10 mg PO Q1H PRN PRN Reason: Pain Last Admin: 06/03/17 18:18 Dose: 10 mg Admin: 06/03/17 15:17 Dose: 10 mg Admin: 06/03/17 13:11 Dose: 10 mg Admin: 06/03/17 12:14 Dose: 10 mg Admin: 06/03/17 11:08 Dose: 10 mg Ondansetron HCl (Zofran Odt) 4 mg PO Q6H PRN PRN Reason: Nausea able to take PO Labs: Laboratory Tests 06/03/17 06/03/17 06/03/17 Range/Units 09:25 09:25 09:25 WBC 10.7 (4.5-11.0) K/uL RBC 1.74 L (3.30-5.50) M/uL Hgb 5.4 L* D (12.0-15.0) g/dL Hct 16.8 L (36.0-48.0) % MCV 97 (80-98) fL MCH 31 (27-31) pg MCHC 32 (32-36) % Plt Count 352 (150-400) K/uL Neut % (Auto) 74 H (36-66) % Lymph % (Auto) 16 L (24-44) % [place] % (Auto) 9 H (2-6) % Eos % (Auto) 1 L (2-4) % Baso % (Auto) 0 (0-1) % PT 23.7 H (9.5-12.0) sec INR 2.15 H (0.80-1.20) Sodium 138 L (140-148) mmol/L Potassium 4.4 (3.6-5.2) mmol/L Chloride 102 (100-108) mmol/L Carbon Dioxide 27 (21-32) mmol/L Anion Gap 13.4 (5.0-14.0) mmol/L BUN 50 H D (7-18) mg/dL Creatinine 3.9 H* (0.6-1.0) mg/dL Est Cr Clr Drug Dosing 10.04 mL/min Estimated GFR (MDRD) 11 L (>60) Glucose 175 H (74-106) mg/dL Calcium 7.6 L (8.5-10.1) mg/dL Total Bilirubin 0.3 (0.2-1.0) mg/dL AST 18 (15-37) U/L ALT 3 L (12-78) U/L Alkaline Phosphatase 86 (46-116) U/L Total Protein 4.4 L (6.4-8.2) g/dL Albumin 1.5 L (3.4-5.0) g/dL Globulin 2.9 (2.3-3.5) g/dL Albumin/Globulin Ratio 0.5 L (1.2-2.2) Meds: Medications Generic Name Dose Route Start Last Admin Trade Name Freq PRN Reason Stop Dose Admin Atropine Sulfate 0 ml 06/03/17 12:08 Atropine 1% SL Q4H PRN secretions Lorazepam 0.5 - 1 mg 06/03/17 10:38 06/03/17 15:17 Ativan Oral Concentrate 1mg/0.5 Ml U/D PO 1 mg Q1H PRN Administration Anxiety Morphine Sulfate 5 - 10 mg 06/03/17 10:38 06/03/17 18:18 Morphine 10 Mg/0.5 Ml Oral Syringe PO 10 mg Q1H PRN Administration Pain Ondansetron HCl 4 mg 06/03/17 12:08 Zofran Odt PO Q6H PRN Nausea able to take PO Discontinued Medications Generic Name Dose Route Start Last Admin Trade Name Freq PRN Reason Stop Dose Admin Hydromorphone HCl 0.5 mg 06/03/17 09:30 06/03/17 09:47 Dilaudid IVPUSH 06/03/17 09:31 0.5 mg ONETIME ONE Administration Sodium Chloride 1,000 mls @ 1,000 mls/hr 06/03/17 09:45 06/03/17 09:50 Normal Saline IV 1,000 mls/hr ASDIRECTED MELISSA Administration Ondansetron HCl 4 mg 06/03/17 09:30 06/03/17 09:38 Zofran IVPUSH 06/03/17 09:31 4 mg ONETIME ONE Administration - Re-Assessments/Exams Free Text/Narrative Re-Assessment/Exam: 06/03/17 09:43 Urgent 1 L of normal saline was bolused, and her power of tyre fitter arrived and we discussed proper cares versus aggressive measures as this likely is a near terminal event. The patient did not want lifesaving measures unless she was able to "go home", that is extremely unlikely under the best scenario. 06/03/17 10:13 After a conversation with the patient and her power of tyre fitter, she elected to just have comfort cares which was discussed with Dr. Yancey of the hospitalist service. She is foregoing any further dialysis or aggressive treatment. Departure - Departure Time of Disposition: 11:25 Disposition: Admitted As Inpatient 67 Condition: Critical Clinical Impression: Blood loss anemia, GI bleed, CKD (chronic kidney disease), stage IV - Discharge Information
[2017-06-03] MEDS ORDERED: Sodium Chloride 0.9% 1,000 ML IV SCH (09:45)
--- NOTE | 2017-06-03 10:51 | PCM.HP ---
H&P History of Present Illness - General Date of Service: 06/03/17 Admit Problem/Dx: Admission Diagnosis/Problem Admission Diagnosis/Problem Gastrointestinal hemorrhage Source of Information: Patient, Family History Limitations: Reports: No Limitations - History of Present Illness Initial Comments - Free Text/Narative: Rosanna presents to the ER from the senior living with abdominal pain and bright red blood per rectum as well as hematemesis. She is currently reporting moderately severe crampy abdominal pain that is generalized. Pain is worse with any sort of movement or pressure. Pain medications in the emergency room have improved her pain level. She has some associated nausea but has not been vomiting during the emergency room stay. She's not aware of any recent fevers. She does not currently feel short of breath. Workup in the emergency room revealed hemoglobin of 5. There is concern for acute gastrointestinal hemorrhage with treatment complicated by end-stage renal disease. Discussions with the family have revealed a very poor [id number] with dialysis and patient being senior living bound. At this time she does not wish to have further aggressive interventions performed but is interested in a comfort care approach. She does not want additional dialysis and is not interested in transfer for GI workup or any sort of treatment. She'll be admitted for palliative care and end-of-life treatment. Abdominal Pain Score (Numeric/FACES): 8 - Related Data Allergies/Adverse Reactions: Allergies Allergy/AdvReac Type Severity Reaction Status Date / Time No Known Allergies Allergy Verified 05/30/17 15:39 Home Medications: Home Meds Aspirin [Malinda Chewable Aspirin] 81 mg PO DAILY 08/16/14 [History] Latanoprost [Xalatan 0.005% Ophth Soln] 1 drop EYERT BEDTIME 08/16/14 [History] Multivitamin with Minerals [Multiple Vitamin] 1 tab PO DAILY 08/16/14 [History] Furosemide [Lasix] 40 mg PO BID 03/03/16 [History] Nystatin [Nystatin Crm] 1 applic TOP BID 03/03/16 [History] Vitamin B Complex [B Complex] 1 tab PO DAILY 03/04/16 [History] Lisinopril [Lisinopril] 1 tab PO BID 01/19/17 [History] Metoprolol Tartrate 25 mg PO BID 03/09/17 [History] Sevelamer Carbonate [Renvela] 800 mg PO TID 03/09/17 [History] amLODIPine Besylate [Norvasc] 2.5 mg PO DAILY 03/09/17 [History] Past Medical History HEENT History: Reports: Glaucoma, Impaired Vision Cardiovascular History: Reports: Heart Failure, Hypertension Respiratory History: Reports: SOB Genitourinary History: Reports: Dialysis 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,W,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: , Other (See Below) Other OB/BYN History: cyst removed from right ovary around 31 years of age Musculoskeletal History: Reports: Arthritis, Fracture Other Musculoskeletal History: left hip Other Neuro History: none Endocrine/Metabolic History: Reports: Diabetes, Type II, Obesity/BMI 30+ Hematologic History: Reports: Blood Transfusion(s) - Infectious Disease History Infectious Disease History: Reports: Chicken Pox, Measles, Mumps, Shingles - Past Surgical History GI Surgical History: Reports: Appendectomy Musculoskeletal Surgical History: Reports: Other (See Below) Social & Family History - Family History Family Medical History: Noncontributory - Tobacco Use Smoking Status *Q: Never Smoker Years of Tobacco use: 45 Used Tobacco, but Quit: Yes Month Tobacco Last Used: April Second Hand Smoke Exposure: No - Caffeine Use Caffeine Use: Reports: None - Alcohol Use Days Per Week of Alcohol Use: 0 - Recreational Drug Use Recreational Drug Use: No H&P Review of Systems - Review of Systems: Review Of Systems: See Below Free Text/Narrative: A complete 12 point review of systems was obtained. Pertinent positives and negatives are noted in the history of present illness. All other systems were reviewed and were negative except as noted. Exam - Exam Exam: See Below - Vital Signs Vital Signs: Last Vital Signs Temp 36.6 C 06/03/17 09:30 Pulse 96 06/03/17 10:07 Resp 16 06/03/17 10:07 BP 96/41 L 06/03/17 10:07 Pulse Ox 98 06/03/17 10:07 Weight: 82.5 kg - Exam Quality Assessment: Supplemental Oxygen General: Alert, Oriented, Cooperative, Moderate Distress HEENT: Conjunctiva Clear. No: Mucosa Moist & [place], Scleral Icterus Neck: Supple, Trachea Midline. No: Lymphadenopathy Lungs: Clear to Auscultation. No: Normal Respiratory Effort (Increased work of breathing) Cardiovascular: Regular Rate, Regular Rhythm, Systolic Murmur GI/Abdominal Exam: No Distention, Tender (Severe generalized tenderness), Abnormal Bowel Sounds (No bowel sounds) Extremities: No Pedal Edema, Other (wound VAC left lateral thigh). No: Increased Warmth Peripheral Pulses: 2+: Dorsalis Pedis (L), Dorsalis Pedis (R) Skin: Warm, Dry Neuro Extensive - Mental Status: Alert, Oriented x3, Nl Response to Commands Neuro Extensive - Motor, Sensory, Reflexes: CN II-XII Intact. No: Dysarthria, Abnormal Motor Psychiatric: Alert, Anxious - Patient Data Lab Results Last 24 hrs: Laboratory Results - last 24 hr 06/03/17 06/03/17 06/03/17 Range/Units 09:25 09:25 09:25 WBC 10.7 (4.5-11.0) K/uL RBC 1.74 L (3.30-5.50) M/uL Hgb 5.4 L* D (12.0-15.0) g/dL Hct 16.8 L (36.0-48.0) % MCV 97 (80-98) fL MCH 31 (27-31) pg MCHC 32 (32-36) % Plt Count 352 (150-400) K/uL Neut % (Auto) 74 H (36-66) % Lymph % (Auto) 16 L (24-44) % [place] % (Auto) 9 H (2-6) % Eos % (Auto) 1 L (2-4) % Baso % (Auto) 0 (0-1) % PT 23.7 H (9.5-12.0) sec INR 2.15 H (0.80-1.20) Sodium 138 L (140-148) mmol/L Potassium 4.4 (3.6-5.2) mmol/L Chloride 102 (100-108) mmol/L Carbon Dioxide 27 (21-32) mmol/L Anion Gap 13.4 (5.0-14.0) mmol/L BUN 50 H D (7-18) mg/dL Creatinine 3.9 H* (0.6-1.0) mg/dL Est Cr Clr Drug Dosing 10.04 mL/min Estimated GFR (MDRD) 11 L (>60) Glucose 175 H (74-106) mg/dL Calcium 7.6 L (8.5-10.1) mg/dL Total Bilirubin 0.3 (0.2-1.0) mg/dL AST 18 (15-37) U/L ALT 3 L (12-78) U/L Alkaline Phosphatase 86 (46-116) U/L Total Protein 4.4 L (6.4-8.2) g/dL Albumin 1.5 L (3.4-5.0) g/dL Globulin 2.9 (2.3-3.5) g/dL Albumin/Globulin Ratio 0.5 L (1.2-2.2) Result Diagrams: 06/03/17 09:25 06/03/17 09:25 *Q Meaningful Use (ADM) - VTE *Q VTE Criteria *Q: VTE Pharmacological Contraindications *Q: Active Hemorrhage - VTE Risk Assess *Q Each Risk Factor Represents 1 Point: Central Venous Access Total Score 1 Point Risk Factors: 1 Each Risk Factor Represents 2 Points: None Total Score 2 Point Risk Factors: 0 Each Risk Factor Represents 3 Points: Age 75 Years or Greater Total Score 3 Point Risk Factors: 3 Each Risk Factor Represents 5 Points: None Total Score 5 Point Risk Factors: 0 Venous Thromboembolism Risk Factor Score *Q: 4 - Stroke *Q Stroke Criteria *Q: - AMI *Q AMI Criteria *Q: - Problem List (1) Acute gastrointestinal hemorrhage SNOMED Code(s): 28140152 ICD Code: K92.2 - GASTROINTESTINAL HEMORRHAGE, UNSPECIFIED Status: Acute Current Visit: Yes (2) Acute blood loss anemia SNOMED Code(s): 985838103 ICD Code: D62 - ACUTE POSTHEMORRHAGIC ANEMIA Status: Acute Current Visit : Yes (3) End stage renal disease Status: Chronic Current Visit: Yes (4) Palliative care encounter SNOMED Code(s): 889209022 ICD Code: Z51.5 - ENCOUNTER FOR PALLIATIVE CARE Status: Acute Current Visit: Yes Problem List Initiated/Reviewed/Updated: Yes Orders Last 24hrs: Active Orders 24 hr Category Date Time Status Patient Status Manage Transfer [TRANSFER] Routine ADT 06/03/17 10:39 Ordered LORazepam [Ativan ORAL Concentrate 1MG/0.5 ML U/D] Med 06/03/17 10:38 Active 0.5 - 1 mg PO Q1H PRN Morphine [Morphine 10 MG/0.5 ML Oral Syringe] Med 06/03/17 10:38 Active 5 - 10 mg PO Q1H PRN Sodium Chloride 0.9% [Normal Saline] 1,000 ml Med 06/03/17 09:45 Active IV ASDIRECTED Resuscitation Status Routine Resus Stat 06/03/17 10:40 Ordered Medication Orders Sodium Chloride (Normal Saline) 1,000 mls @ 1,000 mls/hr IV ASDIRECTED [facility] Last Admin: 06/03/17 09:50 Dose: 1,000 mls/hr Lorazepam (Ativan Oral Concentrate 1mg/0.5 Ml U/D) 0.5 - 1 mg PO Q1H PRN PRN Reason: Anxiety Morphine Sulfate (Morphine 10 Mg/0.5 Ml Oral Syringe) 5 - 10 mg PO Q1H PRN PRN Reason: Pain Assessment/Plan Comment:: Assessment and plan - Acute gastrointestinal hemorrhage with acute blood loss anemia - severe abdominal pain with hematochezia and hematemesis. Ischemic bowel could be considered. Patient does not wish for further aggressive intervention or workup given her poor [id number] and dialysis requirement. She is opting for comfort-based approach at this time. She has severe pain at this time and would benefit from inpatient admission and pain management. I do not suspect that she will survive very long given the significant hemorrhage complicated by her end- stage renal disease. -Morphine as needed for pain -Lorazepam as needed for anxiety -Patient declines any further workup or intervention End-stage renal disease - patient no longer desires dialysis. I suspect that with the acute hemorrhage and her end-stage renal disease that her life expectancy is limited to hours or maybe a few days at most. -Palliative care as above Maintenance issues - - DVT prophylaxis - comfort cares - GI prophylaxis - comfort cares - Nutrition - clear liquids - [place] catheter - not indicated CODE STATUS - DNR/DNI with comfort cares Admission justification - This patient will be admitted for inpatient services and is medically appropriate meeting medical necessity for inpatient admission as outlined in my documentation. I reasonably expect the patient will require inpatient services that span a period time over 2 midnights. I reasonably expect this patient to be discharged or transferred within 96 hours [facility]. Disposition - I expect that the patient will pass within the next few hours to maybe a couple of days with her acute hemorrhage and end-stage renal disease for which she will not be receiving additional dialysis. Primary care physician - Dr Amor Yancey M.D.
[2017-06-03] MEDS: Morphine 10 MG/0.5 ML Oral Syringe PO PRN ×7 (11:08→21:55)
[2017-06-03] MEDS ORDERED: Ondansetron 4 MG Tab.DIS PO PRN (12:08)
[2017-06-03] MEDS ORDERED: Atropine Sulfate Ophth 2 ML Drops SL PRN (12:08)
[2017-06-03] MEDS: LORazepam ORAL Concentrate 1MG/0.5ML U/D PO PRN ×5 (12:13→21:55)
[2017-06-03 15:04] VITALS: BP 107/54
[2017-06-04] MEDS: Morphine 10 MG/0.5 ML Oral Syringe PO PRN ×3 (00:12→04:18)
--- NOTE | 2017-06-04 08:44 | PCM.DCSUM1 ---
Discharge Summary - Hospital Course Brief History: 87 -year-old female with history of end-stage renal disease on dialysis who presented with hematemesis and hematochezia. Workup in the emergency room revealed a hemoglobin of 5. There was concern for possible ischemic bowel versus other acute gastrointestinal issue leading to hemorrhage. The patient elected to choose a comfort-based approach given her poor quality-of -life and dialysis struggles. - Discharge Data Discharge Date: 06/04/17 Discharge Disposition: 20 Condition: Poor - Discharge Diagnosis/Problem(s) (1) Acute gastrointestinal hemorrhage SNOMED Code(s): 36775685 ICD Code: K92.2 - GASTROINTESTINAL HEMORRHAGE, UNSPECIFIED Status: Acute (2) Acute blood loss anemia SNOMED Code(s): 206740460 ICD Code: D62 - ACUTE POSTHEMORRHAGIC ANEMIA Status: Acute (3) End stage renal disease Status: Chronic (4) Palliative care encounter SNOMED Code(s): 771672197 ICD Code: Z51.5 - ENCOUNTER FOR PALLIATIVE CARE Status: Acute - Patient Summary/Data Hospital Course: Rosanna presented to the emergency room from [facility] after an episode of hematochezia and hematemesis. [facility]. In the emergency room she was noted to be hypotensive and tachycardic. Laboratory studies revealed a hemoglobin of 5. There was concern for acute gastrointestinal issues such as hemorrhage or possibly ischemic bowel given her severe abdominal pain. Discussions were held regarding treatment options including transfer to a [facility] in [place] for more aggressive intervention versus limited interventions comfort care. Patient reported that given her very poor [id number] with dialysis and little hope that she will get better but she would prefer a comfort-based approach. She was admitted to the hospital with aggressive pain management. We did not perform any blood transfusions or IV fluids. She was comfortable throughout her hospital stay and passed peacefully the morning after admission. No attempts at resuscitation were made per her previously expressed wishes. - Discharge Plan Home Medications: Home Meds Aspirin [Malinda Chewable Aspirin] 81 mg PO DAILY 08/16/14 [History] Latanoprost [Xalatan 0.005% Ophth Soln] 1 drop EYERT BEDTIME 08/16/14 [History] Multivitamin with Minerals [Multiple Vitamin] 1 tab PO DAILY 08/16/14 [History] Furosemide [Lasix] 40 mg PO BID 03/03/16 [History] Nystatin [Nystatin Crm] 1 applic TOP BID 03/03/16 [History] Vitamin B Complex [B Complex] 1 tab PO DAILY 03/04/16 [History] Lisinopril [Lisinopril] 1 tab PO BID 01/19/17 [History] Metoprolol Tartrate 25 mg PO BID 03/09/17 [History] Sevelamer Carbonate [Renvela] 800 mg PO TID 03/09/17 [History] amLODIPine Besylate [Norvasc] 2.5 mg PO DAILY 03/09/17 [History] Forms: ED Department Discharge Referrals: PCP,None [Primary Care Provider] - - Discharge Summary/Plan Comment DC Time >30 min.: No (20) - Patient Data Vitals - Most Recent: Last Vital Signs Temp 36.1 C 06/04/17 02:47 Pulse 124 H 06/04/17 02:47 Resp 9 L 06/04/17 02:47 BP 107/54 L 06/03/17 13:15 Pulse Ox 76 L 06/04/17 02:47 Weight - Most Recent: 75.75 kg Med Orders - Current: Current Medications Atropine Sulfate (Atropine 1%) 0 ml SL Q4H PRN PRN Reason: secretions Lorazepam (Ativan Oral Concentrate 1mg/0.5 Ml U/D) 0.5 - 1 mg PO Q1H PRN PRN Reason: Anxiety Last Admin: 06/03/17 21:55 Dose: 1 mg Morphine Sulfate (Morphine 10 Mg/0.5 Ml Oral Syringe) 5 - 10 mg PO Q1H PRN PRN Reason: Pain Last Admin: 06/04/17 04:18 Dose: 10 mg Ondansetron HCl (Zofran Odt) 4 mg PO Q6H PRN PRN Reason: Nausea able to take PO Discontinued Medications Hydromorphone HCl (Dilaudid) 0.5 mg IVPUSH ONETIME ONE Stop: 06/03/17 09:31 Last Admin: 06/03/17 09:47 Dose: 0.5 mg Sodium Chloride (Normal Saline) 1,000 mls @ 1,000 mls/hr IV ASDIRECTED MELISSA Last Admin: 06/03/17 09:50 Dose: 1,000 mls/hr Ondansetron HCl (Zofran) 4 mg IVPUSH ONETIME ONE Stop: 06/03/17 09:31 Last Admin: 06/03/17 09:38 Dose: 4 mg *Q Meaningful Use (DIS) - VTE *Q VTE Criteria *Q: VTE Pharmacological Contraindications *Q: Active Hemorrhage - Stroke *Q Stroke Criteria *Q: - AMI *Q AMI Criteria *Q:
== END 2017-06-04 07:46 | disposition expired | DRG 811 ==
LOC: JP.ED 09:10 → JP.MS 10:39 → UNDOADMIN 10:39 → JP.MS 11:59 → UNDODISIN 06-04 07:46
PROVIDERS: ADMIT Internal Medicine; ATTEND Internal Medicine
DX: D62 Acute posthemorrhagic anemia (principal); N18.6 End stage renal disease; K92.1 Melena; I13.2 Hypertensive heart and chronic kidney disease with heart failure and with stage 5 chronic kidney disease, or end stage renal disease; E11.9 Type 2 diabetes mellitus without complications; I50.9 Heart failure, unspecified; E66.9 Obesity, unspecified; R10.9 Unspecified abdominal pain; Z99.2 Dependence on renal dialysis; Z51.5 Encounter for palliative care; Z66 Do not resuscitate; Z79.82 Long term (current) use of aspirin; Z79.899 Other long term (current) drug therapy; Z68.30 Body mass index [BMI] 30.0-30.9, adult; Z87.891 Personal history of nicotine dependence
CPT/HCPCS: 36415; 80053; 85025; 85610; J1170; J2405; J7040; 96361; 96374; 96375; 99285; 99285-25; A9270-GY